=== PATIENT | male | born 1985 ===

== ENCOUNTER 2023-10-19 05:16 | Emergency (ER) | payer MEDICAID ==
[~2023-10-19] VITALS: Ht 177.8 cm; Wt 74.8 kg
[2023-10-19] MEDS ORDERED: Albuterol 2.5 MG/3 ML VIAL INH ONE (05:30)
[2023-10-19] MEDS ORDERED: ALBU90OI INH (06:30)
[2023-10-19] MEDS ORDERED: RX Prepack Albuterol 1 PREPACK/6.7 GM INH UD ONE (06:30)
[2023-10-19] MEDS ORDERED: ALLERCLEAR10 MG PO (06:30)
[2023-10-19] MEDS ORDERED: Vibramycin100 MG PO (09:42)
== END 2023-10-19 06:35 | disposition home or self-care (01) ==
LOC: ER 05:16
DX: J45.901 Unspecified asthma with (acute) exacerbation (principal)
CPT/HCPCS: 93005; 93010; 94640; 94664; 99285-25; A9270

== ENCOUNTER 2023-10-19 09:23 | Emergency (ER) | payer MEDICAID ==
[~2023-10-19] VITALS: Ht 162.6 cm; Wt 74.8 kg
[~2023-10-19 09:23] MED LIST: ALBU90OI INH; ALLERCLEAR10 MG PO
[2023-10-19] MEDS ORDERED: Doxycycline Hyclate 100 MG TAB PO ONE (09:35)
[2023-10-19] MEDS ORDERED: CefTRIAXone 500 MG Vial IM ONE (09:35)
[2023-10-19] MEDS ORDERED: Vibramycin100 MG PO (09:42)
== END 2023-10-19 11:25 | disposition home or self-care (01) ==
LOC: ER 09:23
DX: A64 Unspecified sexually transmitted disease (principal); J45.909 Unspecified asthma, uncomplicated; Z79.899 Other long term (current) drug therapy
CPT/HCPCS: 96372; 99282-25; A9270; J0696